=== PATIENT | male | born 1930 | race Caucasian/White ===

== ENCOUNTER 2016-10-28 16:06 | Inpatient (IN) | payer MEDICARE, OTHER ==
--- NOTE | ~2016-10-28 | CN ---
Consultation Report [facility] [address] [place]. [address] NAME: ALFRED MARTE : [birth year] STATUS : ADM IN PAT#: [id number] AGE: 86 ADM/REG DATE : 10/28/16 MR#: [id number] REPORT SERV DATE: 10/29/16 DICTATED BY: DATE: REPORT STATUS : Draft TRANSCRIBED BY: MODL DATE: 10/29/16 CONSULTATION DATE OF CONSULTATION: 10/29/2016 CHIEF COMPLAINT/REASON FOR CONSULT: Congestive heart failure. PRIMARY DIRECTOR CLINICAL INFORMATION SERVICES: Dr. Valdez. HISTORY OF PRESENT ILLNESS: Mr. Marte is a very pleasant 86-year-old gentleman with a known history of abdominal aortic aneurysm, atrial fibrillation, coronary artery disease status post coronary artery bypass grafting, DVT, and chronic systolic heart failure with an ejection fraction of 40%, and moderate mitral regurgitation. He was admitted on 10/29/2016 for weakness and increased shortness of breath. The patient denies any chest pain. He states that he just felt weak and now he feels better with oxygen therapy. In speaking with the patient and his , they state that they eat every meal out. She states that her kitchen is closed. Every morning he goes to [employer] and gets them breakfast. His favorite breakfast is a biscuit and gravy from [employer] which has approximately 1390 mg of sodium in it, and then they go to the [facility] in [place] and eat for the rest of the day. They do not salt their food. He does not necessarily restrict his fluid and generally had anywhere between four glasses and a pitcher of sweet tea with his meal at the [facility]. Sometimes they miss medicines. But states that he is generally compliant. PAST MEDICAL HISTORY: 1. Chronic systolic heart failure, ejection fraction of 40% with moderate mitral regurgitation, 06/20/2016. 2. History of abdominal aortic aneurysm repair in 2009. 3. Atrial fibrillation. 4. Left bundle-branch block. 5. Coronary artery bypass grafting x4 in 2008. 6. Chronic anticoagulation therapy. SOCIAL HISTORY: The patient is . His is present at the bedside, as well as his daughter. He does not smoke. He quit 45 years ago. He does not use alcohol. He does not use extracurricular drugs. FAMILY HISTORY: Noncontributory. REVIEW OF SYSTEMS: All systems reviewed and is negative except for as dictated in the HPI. PHYSICAL EXAMINATION: Consultation Report [facility] [id number] [place]. [address] NAME: ALFRED MARTE : [birth year] STATUS : ADM IN PAT#: [id number] AGE: 86 ADM/REG DATE : 10/28/16 MR#: [id number] REPORT SERV DATE: 10/29/16 DICTATED BY: DATE: REPORT STATUS : Draft TRANSCRIBED BY: MODL DATE: 10/29/16 VITAL SIGNS: Blood pressures range between 138 to 158 over 77 and 90, respirations 18, pulse has ranged between 84 to 89 beats per minute, and oxygen saturations 99% on 3 L nasal cannula. I's 230, O's 1350. GENERAL: Mr. Marte is a cachectic 86-year-old gentleman. He is in no distress. NECK: I could not appreciate jugular venous distention. HEART: Irregular. Rate controlled. There is a 3/6 systolic murmur that is best appreciated at the apex. LUNGS: Clear to auscultation at this time. ABDOMEN: Soft and nontender. EXTREMITIES: Warm and well-perfused. There is trivial edema at the ankles. NEUROLOGIC: The patient is alert and oriented. I could not appreciate focal neurologic deficits. LABORATORY DATA: A CT scan of the chest demonstrated a possible spiculated mass, pulmonary hypertension, bilateral pleural effusions noted. Sodium 4.7, BUN 29, and creatinine 1.46. Hemoglobin 11, hematocrit 37.6, and platelet count is 183. INR is 3. BNP is 4032. EKG demonstrated a left bundle-branch block, cannot exclude atrial flutter. IMPRESSION, REPORT, AND PLAN: 1. Acute on chronic systolic heart failure. 2. Hypoxia and dyspnea, likely secondary to above. 3. Sodium noncompliance. 4. Spiculated masslike infiltrate. 5. Coronary artery disease status post coronary artery bypass grafting. 6. Chronic atrial fibrillation. 7. Mild renal insufficiency. RECOMMENDATIONS: 1. I agree with diuresis as already initiated. 2. Continue carvedilol. 3. We would hold RONALDO inhibitor during diuresis at this time. 4. Consider adding low-dose spironolactone. 5. Heart failure teaching has been provided by both nursing staff and by myself as far as the sodium content in various foods. 6. Fluid restrict to 2 L per day. 7. Additional recommendations pending clinical course. LGC/MODL Tracey Cho M.D. / [id number] Consultation Report [address] [facility] [address] NAME: ALFRED MARTE : [birth year] STATUS : ADM IN PAT#: [id number] AGE: 86 ADM/REG DATE : 10/28/16 MR#: [id number] REPORT SERV DATE: 10/29/16 DICTATED BY: DATE: REPORT STATUS : Draft TRANSCRIBED BY: MODL DATE: 10/29/16 CC: Narayan Holcomb M.D.
--- NOTE | ~2016-10-28 | DS ---
Discharge Summary [facility] [id number] [place]. [address] NAME: ALFRED LUI : [birth year] STATUS : DIS IN PAT#: [id number] AGE: 86 ADM/REG DATE : 10/28/16 MR#: [id number] REPORT SERV DATE: 11/04/16 DICTATED BY: EFREN DUMONT DATE: 11/03/16 REPORT STATUS : Draft TRANSCRIBED BY: MODL DATE: 11/03/16 ADMISSION DATE: 10/28/2016 DISCHARGE DATE: 11/03/2016 ADMITTING DIAGNOSIS: Hypoxic respiratory failure. DISCHARGE DIAGNOSES: 1. Hypoxic respiratory failure secondary to acute on chronic systolic congestive heart failure. 2. Ischemic cardiomyopathy. 3. Coronary artery disease, distant coronary artery bypassing. 4. Right lung mass, uncertain significance to be followed upon. 5. Hypertension. 6. Chronic atrial fibrillation. 7. Chronic kidney disease 3. 8. Hypothyroidism. 9. History of kidney stones with ureteral obstruction. 10.Esophageal reflux, distant history of peptic ulcer disease. 11.History of abdominal aortic aneurysm stenting. 12.History of hospital encephalopathy, all recalled. 13.Chronic Coumadin therapy. DISCHARGE MEDICATIONS: He will take aspirin 81 mg coated daily, carvedilol increased to 25 mg b.i.d., levothyroxine continued at 88 mcg a day, lisinopril instituted at 5 mg b.i.d., magnesium continued at 400 mg daily, Protonix continued 40 mg daily, pravastatin continued 20 mg daily. Spironolactone initiated at 25 mg daily. Demadex increased to 20 mg b.i.d. He would continue previous Coumadin therapy and timolol eye drops. He would stay off potassium. He would follow up in 3 days with a BMP and a protime. ADMISSION SUMMARY: An 86-year-old gentleman with medical problems as defined above presented to the emergency room with several days of weakness and dyspnea found to be hypoxic and chest x-ray initially suggesting the possibility of pneumonia. See the previously dictated admission note. PERTINENT LABORATORY STUDIES: Admission white count 9500, hemoglobin 10.9, hematocrit 37.1, INR was 2.9. Sodium 144, potassium 4.3, BUN 24, creatinine 1.44, nonfasting blood sugar 137, troponin was 0.[address] x3. BNP elevated at 4032 improved to 1529 several days prior to discharge. TSH was normal. Blood gas; 7.49/34/58 on room air. Urinalysis on admission unremarkable. At discharge INR was 2.0, hematocrit 11.2, hemoglobin 35.9, sodium 139, potassium 4.3, BUN 37, and creatinine 1.32. RADIOGRAPHIC STUDIES: Included initial chest x-ray showing right lower lobe airspace disease compatible with pneumonia and bilateral pleural effusions. CT scan of the chest without contrast showed cardiomegaly with findings of congestive heart failure, some thoracic aneurysmal changes, and a spiculated mass infiltrate in the right lower lobe suspicious for malignancy. There was atelectasis bilaterally. Prior to discharge, a chest x-ray repeated Discharge Summary [address] [place]. [address] NAME: ALFRED LUI : [birth year] STATUS : DIS IN PAT#: [id number] AGE: 86 ADM/REG DATE : 10/28/16 MR#: [id number] REPORT SERV DATE: 11/04/16 DICTATED BY: EFREN DUMONT DATE: 11/03/16 REPORT STATUS : Draft TRANSCRIBED BY: MANUEL DATE: 11/03/16 showed cardiomegaly with marked improvement in the lungs, pulmonary congestion with a small right pleural effusion. HOSPITAL COURSE: The patient was admitted with respiratory failure. Initially chest x-ray raised the question of pneumonia but clinically, it was more compatible with congestive heart failure. He was given IV diuretics seen in consultation by Cardiology representing Dr. Valdez. An echocardiogram showed moderate to severe global systolic dysfunction with ejection fraction of 30% to 35% range which had previously been about 40-45% range six months ago. There was moderate mitral regurgitation. Diuretics were pushed. Spironolactone was added. Beta blockers were increased, and lisinopril was added all with judicious observation of his potassium and blood pressure. At the time of discharge, he was tolerating it well, and there was marked improvement in his chest x-ray findings, and he felt much better. He was in atrial fibrillation. Coumadin was therapeutic. He was given dietary education regarding salt restriction. Initial chest x-ray raised the question of a mass in his right lung. It was my clinical suspicion that this was more likely fluid and a CT scan of the chest would be followed up on in several weeks. He was given education on his medications and was discharged in care of his family for outpatient followup as above. XIOMARA/MANUEL Efren Dumont M.D. / [id number] CC: Mir Leonard M.D.
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
[~2016-10-28 16:06] MED LIST: ACET500CAP PO; ALBUTEROL5 INH; ASAB PO; ATEN100 PO; BETIMOL0.25 % OP; BETIMOL0.5 % OPH; C1 PO; C2 PO; CARDCD180 PO; CEFT5 PO; CORDARONE PO; COREG12 PO; COREG25 PO; COUMADIN3 MG PO; DEMA10T PO; DEMA20 PO; DILT-XR180 MG PO; DURICEF PO; FERROUS SULF325 M1 PO; GGEXPUD PO; HALF81 PO; HCTZ12.5 PO; HYDROCHLOROT12.5 MG PO; IRON325 MG PO; KDUR10 PO; KDUR20 PO; KLOR-CON M1010 MEQ PO; KLOR-CON M2020 MEQ PO; KONSYL100 % PO; LEVAQUIN750 MG PO; LEVOTHYROXIN88 MCG PO; LIPITOR20 PO; LISINOPRIL40 MG PO; LOP100 PO; LOVENOX40 SC; MAGOX4 PO; MULTIPLE VIT PO; NEXIUM40 MG PO; NIASPAN500 PO; NXL9 PO; OTC MELATONIN PO; PRAVAC PO; PRAVASTATIN PO; PREV30 PO; PRIN20 PO; PROTONIX PO; PYR200 PO; SYMBICORT 160/41 INH INH; SYN88 PO; TIMOLOL MAL0.5 % OP; TIMOLOL MAL0.5 % OPH; TIMOLOL OPH; TIMOPTIC OCU0.5 % OP; TRAZ50 PO; TYLENOL PM PO; VITC500 PO; [UNRECOGNIZED DRUG - OTHER] PO
[2016-10-28 16:16] LABS: BASOPHILS 0.2 %; BASOPHILS ABSOLUTE 0.02 10/3/uL (0.0-0.16); EOSINOPHILS 1.6 %; EOSINOPHILS ABSOLUTE 0.15 10/3/uL (0.0-0.53); ER CBC TAT 0 Hrs 05 Mins; HEMATOCRIT 37.1 % (40.0-51.0); HEMOGLOBIN 10.9 g/dL (13.6-17.8); IMMATURE GRANULOCYTES 0.4 %; IMMATURE GRANULOCYTES ABSOLUTE 0.04 10/3/uL (0.0-0.11); LYMPHOCYTES 27.7 %; LYMPHOCYTES ABSOLUTE 2.62 10/3/uL (0.67-4.30); MEAN CORPUSCULAR HEMOGLOB 25.5 pg (26.0-34.0); MEAN CORPUSCULAR VOLUME 86.7 fL (80-100); MEAN PLATELET VOLUME 10.5 fL (9.2-13.0); MONOCYTES 10.6 %; NEUTROPHILS 59.5 %; NEUTROPHILS ABSOLUTE 5.63 10/3/uL (2.02-8.40); PLATELET COUNT 210 10/3/uL (150-400); RBC DISTRIBUTION WIDTH 17.2 % (12.0-16.0); RED CELL COUNT 4.28 10/6/uL (4.7-6.1); WHITE BLOOD CELLS 9.5 10/3/uL (4.5-10.5)
[2016-10-28 16:17] LABS: MANUAL DIFF NO %; MEAN CORPUS HGB CONC 29.4 g/dL (32.0-36.0)
[2016-10-28 16:22] LABS: PARTIAL THROMBO TIME 33.4 SEC (22.5-37.2)
[2016-10-28 16:23] LABS: INTERNATIONAL NORMAL RATI 2.9 UNITS (-); PROTIME (NOT ORD) 29.9 SEC (12.0-14.5)
[2016-10-28 16:31] LABS: CALCIUM, SERUM 8.9 MG/DL (8.5-10.4); CHLORIDE, SERUM 107 MMOL/L (96-112); CO2 (CARBON DIOXIDE) 31 MMOL/L (24-34); CREATININE 1.44 MG/DL (0.70-1.30); GFR AFRICAN AMERICAN 50 ML/MIN (>=60); GFR NON AFRICAN AMERICAN 43 ML/MIN (>=60); GLUCOSE, SERUM 137 MG/DL (60-99); POTASSIUM, SERUM 4.3 MMOL/L (3.5-5.3); SODIUM, SERUM 144 MMOL/L (135-148)
[2016-10-28 16:32] LABS: BUN (BLOOD UREA NITROGEN) 24 MG/DL (6-23)
[2016-10-28 16:33] LABS: CHEST PAIN PROFILE TAT 0 Hrs 22 Mins; TROPONIN I 0.07 NG/ML (<0.05)
[2016-10-28 16:50] LABS: BE (BASE EXCESS) 2.1 MEQ/L (0 +/- 2.5); CARBOXYHEMOGLOBIN 1.7 % (0-3); HCO3 (ACTUAL BICARBONATE) 25.1 MEQ/L (23-27); HEMOBLOGIN CONTENT 12.1 G/DL (14-18); INSTRUMENT SERIAL # 8087; METHEMOGLOBIN 0.3 % (0-3); O2 CONTENT 15.1 VOL% (18-24); PCO2 (CO2 TENSION) 34 MMHG (35-45); PO2 (O2 TENSION) 58 MMHG (79-93); SAMPLE Arterial; pH 7.49 (7.37-7.43)
[2016-10-28] MEDS ORDERED: TIMOLOL MAL0.5 % OPH (17:05)
[2016-10-28] MEDS ORDERED: C2 PO (17:09)
[2016-10-28 21:46] LABS: WBC (NOT ORDERED) (RFLEX) 0 (0-5)
[2016-10-28 22:03] LABS: ASCORBIC ACID (UR NOT ORDER) NEG (NEG); BILIRUBIN, URINE NEGATIVE (NEG); KETONE, URINE NEGATIVE (NEG); LEUKOCYTE ESTERASE(NOT OR NEG (NEG)
[2016-10-29 05:36] LABS: PROTIME (NOT ORD) 30.9 SEC (12.0-14.5)
[2016-10-29 05:40] LABS: HEMATOCRIT 37.6 % (40.0-51.0); MEAN CORPUS HGB CONC 29.3 g/dL (32.0-36.0); MEAN CORPUSCULAR HEMOGLOB 25.5 pg (26.0-34.0); MEAN PLATELET VOLUME 10.8 fL (9.2-13.0); PLATELET COUNT 183 10/3/uL (150-400); RBC DISTRIBUTION WIDTH 17.1 % (12.0-16.0); RED CELL COUNT 4.32 10/6/uL (4.7-6.1); WHITE BLOOD CELLS 7.3 10/3/uL (4.5-10.5)
[2016-10-29 05:42] LABS: MANUAL DIFF YES %
[2016-10-29 05:47] LABS: CALCIUM, SERUM 8.9 MG/DL (8.5-10.4); CHLORIDE, SERUM 108 MMOL/L (96-112); CO2 (CARBON DIOXIDE) 29 MMOL/L (24-34); CREATININE 1.46 MG/DL (0.70-1.30); GFR AFRICAN AMERICAN 49 ML/MIN (>=60); GFR NON AFRICAN AMERICAN 42 ML/MIN (>=60); GLUCOSE, SERUM 116 MG/DL (60-99); SGPT(ALT) 27 U/L (5-65); SODIUM, SERUM 146 MMOL/L (135-148); TOTAL PROTEIN 6.6 G/DL (6.0-8.5)
[2016-10-29 06:00] LABS: ALBUMIN 2.9 G/DL (3.5-5.0); ALKALINE PHOSPHATASE 67 U/L (45-117); BUN (BLOOD UREA NITROGEN) 29 MG/DL (6-23); TOTAL BILIRUBIN 0.9 MG/DL (0-1.2); TROPONIN I 0.06 NG/ML (<0.05)
[2016-10-29 06:01] LABS: DIRECT BILIRUBIN 0.2 MG/DL (0.0-0.4); INDIRECT BILIRUBIN(NOT ORDER) 0.7 MG/DL (0.1-0.9); POTASSIUM, SERUM 4.7 MMOL/L (3.5-5.3); SGOT(AST) 33 U/L (5-40)
[2016-10-29 06:41] LABS: ANISOCYTOSIS 1+ (5-10/OIF) (0-5/OIF); BAND NEUTROPHILS 2 %; BASOPHILS 1 %; BASOPHILS ABSOLUTE (CALC) 0.07 10/3/uL (0.0-0.16); EOSINOPHILS 3 %; EOSINOPHILS ABSOLUTE (CALC) 0.22 10/3/uL (0.0-0.53); LYMPHOCYTES 26 %; MONOCYTES 7 %; MONOCYTES ABSOLUTE (CALC) 0.51 10/3/uL (0.21-1.20); PLATELET ESTIMATE ADQ (ADEQUATE); POLYCHROMASIA 1+ (2-5/OIF) (0-1/OIF); SEGMENTED NEUTROPHIL (0) 61 %; TOTAL NUCLEATED CELLS 100
[2016-10-30 06:37] LABS: BASOPHILS 0.3 %; BASOPHILS ABSOLUTE 0.03 10/3/uL (0.0-0.16); EOSINOPHILS 2.3 %; EOSINOPHILS ABSOLUTE 0.25 10/3/uL (0.0-0.53); HEMATOCRIT 41.1 % (40.0-51.0); HEMOGLOBIN 12.3 g/dL (13.6-17.8); IMMATURE GRANULOCYTES 0.3 %; IMMATURE GRANULOCYTES ABSOLUTE 0.03 10/3/uL (0.0-0.11); LYMPHOCYTES 26.5 %; LYMPHOCYTES ABSOLUTE 2.84 10/3/uL (0.67-4.30); MEAN CORPUS HGB CONC 29.9 g/dL (32.0-36.0); MEAN CORPUSCULAR VOLUME 86.9 fL (80-100); MEAN PLATELET VOLUME 10.5 fL (9.2-13.0); MONOCYTES 10.3 %; NEUTROPHILS 60.3 %; NEUTROPHILS ABSOLUTE 6.45 10/3/uL (2.02-8.40); PLATELET COUNT 209 10/3/uL (150-400); RBC DISTRIBUTION WIDTH 17.3 % (12.0-16.0); RED CELL COUNT 4.73 10/6/uL (4.7-6.1)
[2016-10-30 06:38] LABS: INTERNATIONAL NORMAL RATI 2.9 UNITS (-); PROTIME (NOT ORD) 29.8 SEC (12.0-14.5)
[2016-10-30 06:40] LABS: MANUAL DIFF NO %; WHITE BLOOD CELLS 10.7 10/3/uL (4.5-10.5)
[2016-10-30 06:48] LABS: BUN (BLOOD UREA NITROGEN) 31 MG/DL (6-23); CALCIUM, SERUM 9.1 MG/DL (8.5-10.4); CHLORIDE, SERUM 105 MMOL/L (96-112); CO2 (CARBON DIOXIDE) 30 MMOL/L (24-34); GFR AFRICAN AMERICAN 44 ML/MIN (>=60); GFR NON AFRICAN AMERICAN 38 ML/MIN (>=60); GLUCOSE, SERUM 137 MG/DL (60-99); SODIUM, SERUM 144 MMOL/L (135-148)
[2016-10-31 04:39] LABS: INTERNATIONAL NORMAL RATI 2.5 UNITS (-); PROTIME (NOT ORD) 26.8 SEC (12.0-14.5)
[2016-10-31 04:42] LABS: HEMATOCRIT 38.6 % (40.0-51.0); HEMOGLOBIN 11.6 g/dL (13.6-17.8); MEAN CORPUS HGB CONC 30.1 g/dL (32.0-36.0); MEAN CORPUSCULAR HEMOGLOB 25.8 pg (26.0-34.0); MEAN PLATELET VOLUME 10.5 fL (9.2-13.0); PLATELET COUNT 172 10/3/uL (150-400); RED CELL COUNT 4.49 10/6/uL (4.7-6.1); WHITE BLOOD CELLS 9.1 10/3/uL (4.5-10.5)
[2016-10-31 04:54] LABS: CALCIUM, SERUM 8.9 MG/DL (8.5-10.4); CHLORIDE, SERUM 103 MMOL/L (96-112); CO2 (CARBON DIOXIDE) 30 MMOL/L (24-34); CREATININE 1.43 MG/DL (0.70-1.30); GFR AFRICAN AMERICAN 50 ML/MIN (>=60); GFR NON AFRICAN AMERICAN 43 ML/MIN (>=60); POTASSIUM, SERUM 4.4 MMOL/L (3.5-5.3); SODIUM, SERUM 143 MMOL/L (135-148)
[2016-10-31 05:02] LABS: BUN (BLOOD UREA NITROGEN) 35 MG/DL (6-23); GLUCOSE, SERUM 108 MG/DL (60-99)
[2016-10-31 05:06] LABS: MANUAL DIFF YES %
[2016-10-31 05:20] LABS: ANISOCYTOSIS 1+ (5-10/OIF) (0-5/OIF); BAND NEUTROPHILS 1 %; EOSINOPHILS 2 %; EOSINOPHILS ABSOLUTE (CALC) 0.18 10/3/uL (0.0-0.53); HYPOCHROMIA 1+ (3-10/OIF) (0-2/OIF); LYMPHOCYTES 20 %; LYMPHOCYTES ABSOLUTE (CALC) 1.82 10/3/uL (0.67-4.30); MONOCYTES 5 %; MONOCYTES ABSOLUTE (CALC) 0.46 10/3/uL (0.21-1.20); NEUTROPHILS ABSOLUTE (CALC) 6.64 10/3/uL (2.02-8.40); PLATELET ESTIMATE ADQ (ADEQUATE); SEGMENTED NEUTROPHIL (0) 72 %; TOTAL NUCLEATED CELLS 100
[2016-11-01 07:11] LABS: BASOPHILS 0.2 %; BASOPHILS ABSOLUTE 0.01 10/3/uL (0.0-0.16); EOSINOPHILS 4.1 %; EOSINOPHILS ABSOLUTE 0.27 10/3/uL (0.0-0.53); HEMATOCRIT 37.8 % (40.0-51.0); HEMOGLOBIN 11.6 g/dL (13.6-17.8); IMMATURE GRANULOCYTES 0.3 %; IMMATURE GRANULOCYTES ABSOLUTE 0.02 10/3/uL (0.0-0.11); LYMPHOCYTES ABSOLUTE 1.79 10/3/uL (0.67-4.30); MEAN CORPUS HGB CONC 30.7 g/dL (32.0-36.0); MEAN CORPUSCULAR HEMOGLOB 26.2 pg (26.0-34.0); MEAN CORPUSCULAR VOLUME 85.5 fL (80-100); MEAN PLATELET VOLUME 10.8 fL (9.2-13.0); MONOCYTES ABSOLUTE 0.73 10/3/uL (0.21-1.20); NEUTROPHILS 57.4 %; NEUTROPHILS ABSOLUTE 3.82 10/3/uL (2.02-8.40); PLATELET COUNT 172 10/3/uL (150-400); RBC DISTRIBUTION WIDTH 16.5 % (12.0-16.0); RED CELL COUNT 4.42 10/6/uL (4.7-6.1); WHITE BLOOD CELLS 6.6 10/3/uL (4.5-10.5)
[2016-11-01 07:18] LABS: BUN (BLOOD UREA NITROGEN) 32 MG/DL (6-23); CHLORIDE, SERUM 98 MMOL/L (96-112); CO2 (CARBON DIOXIDE) 32 MMOL/L (24-34); CREATININE 1.31 MG/DL (0.70-1.30); GFR AFRICAN AMERICAN 56 ML/MIN (>=60); GFR NON AFRICAN AMERICAN 48 ML/MIN (>=60); GLUCOSE, SERUM 108 MG/DL (60-99); SODIUM, SERUM 142 MMOL/L (135-148)
[2016-11-01 07:23] LABS: MANUAL DIFF NO %
[2016-11-01 07:25] LABS: INTERNATIONAL NORMAL RATI 2.1 UNITS (-); PROTIME (NOT ORD) 23.6 SEC (12.0-14.5)
[2016-11-02 05:32] LABS: BASOPHILS 0.3 %; BASOPHILS ABSOLUTE 0.02 10/3/uL (0.0-0.16); EOSINOPHILS 4.3 %; EOSINOPHILS ABSOLUTE 0.34 10/3/uL (0.0-0.53); HEMATOCRIT 37.3 % (40.0-51.0); HEMOGLOBIN 11.5 g/dL (13.6-17.8); IMMATURE GRANULOCYTES 0.4 %; IMMATURE GRANULOCYTES ABSOLUTE 0.03 10/3/uL (0.0-0.11); LYMPHOCYTES 28.2 %; LYMPHOCYTES ABSOLUTE 2.21 10/3/uL (0.67-4.30); MEAN CORPUS HGB CONC 30.8 g/dL (32.0-36.0); MEAN CORPUSCULAR HEMOGLOB 26.3 pg (26.0-34.0); MEAN CORPUSCULAR VOLUME 85.2 fL (80-100); MEAN PLATELET VOLUME 10.9 fL (9.2-13.0); MONOCYTES 12.5 %; MONOCYTES ABSOLUTE 0.98 10/3/uL (0.21-1.20); NEUTROPHILS 54.3 %; NEUTROPHILS ABSOLUTE 4.26 10/3/uL (2.02-8.40); PLATELET COUNT 191 10/3/uL (150-400); RBC DISTRIBUTION WIDTH 16.7 % (12.0-16.0); RED CELL COUNT 4.38 10/6/uL (4.7-6.1); WHITE BLOOD CELLS 7.8 10/3/uL (4.5-10.5)
[2016-11-02 05:37] LABS: MANUAL DIFF NO %
[2016-11-02 05:38] LABS: BUN (BLOOD UREA NITROGEN) 31 MG/DL (6-23); CALCIUM, SERUM 8.9 MG/DL (8.5-10.4); CHLORIDE, SERUM 97 MMOL/L (96-112); CO2 (CARBON DIOXIDE) 36 MMOL/L (24-34); GFR AFRICAN AMERICAN 56 ML/MIN (>=60); GFR NON AFRICAN AMERICAN 49 ML/MIN (>=60); GLUCOSE, SERUM 111 MG/DL (60-99); POTASSIUM, SERUM 4.2 MMOL/L (3.5-5.3); SODIUM, SERUM 141 MMOL/L (135-148)
[2016-11-02 05:39] LABS: PROTIME (NOT ORD) 22.3 SEC (12.0-14.5)
[2016-11-03 05:25] LABS: PROTIME (NOT ORD) 22.6 SEC (12.0-14.5)
[2016-11-03 05:29] LABS: BASOPHILS 0.1 %; BASOPHILS ABSOLUTE 0.01 10/3/uL (0.0-0.16); CALCIUM, SERUM 8.7 MG/DL (8.5-10.4); CHLORIDE, SERUM 97 MMOL/L (96-112); CREATININE 1.32 MG/DL (0.70-1.30); EOSINOPHILS 3.8 %; EOSINOPHILS ABSOLUTE 0.35 10/3/uL (0.0-0.53); GFR AFRICAN AMERICAN 55 ML/MIN (>=60); GFR NON AFRICAN AMERICAN 48 ML/MIN (>=60); GLUCOSE, SERUM 116 MG/DL (60-99); HEMATOCRIT 35.9 % (40.0-51.0); HEMOGLOBIN 11.2 g/dL (13.6-17.8); IMMATURE GRANULOCYTES 0.3 %; IMMATURE GRANULOCYTES ABSOLUTE 0.03 10/3/uL (0.0-0.11); LYMPHOCYTES 20.1 %; LYMPHOCYTES ABSOLUTE 1.87 10/3/uL (0.67-4.30); MEAN CORPUS HGB CONC 31.2 g/dL (32.0-36.0); MEAN CORPUSCULAR HEMOGLOB 26.5 pg (26.0-34.0); MEAN CORPUSCULAR VOLUME 84.9 fL (80-100); MEAN PLATELET VOLUME 10.7 fL (9.2-13.0); MONOCYTES 10.9 %; MONOCYTES ABSOLUTE 1.01 10/3/uL (0.21-1.20); NEUTROPHILS 64.8 %; NEUTROPHILS ABSOLUTE 6.03 10/3/uL (2.02-8.40); PLATELET COUNT 188 10/3/uL (150-400); POTASSIUM, SERUM 4.3 MMOL/L (3.5-5.3); RBC DISTRIBUTION WIDTH 16.6 % (12.0-16.0); RED CELL COUNT 4.23 10/6/uL (4.7-6.1); SODIUM, SERUM 139 MMOL/L (135-148); WHITE BLOOD CELLS 9.3 10/3/uL (4.5-10.5)
[2016-11-03 05:30] LABS: MANUAL DIFF NO %
[2016-11-03 05:32] LABS: BUN (BLOOD UREA NITROGEN) 37 MG/DL (6-23); CO2 (CARBON DIOXIDE) 31 MMOL/L (24-34)
[2016-11-03 07:23] LABS: BAND NEUTROPHILS 13 %; IMMATURE GRANS ABSOLUTE (CALC) 0.28 10/3/uL (0.0-0.11); LYMPHOCYTES 7 %; LYMPHOCYTES ABSOLUTE (CALC) 0.65 10/3/uL (0.67-4.30); METAMYELOCYTES 2 %; MONOCYTES 9 %; MONOCYTES ABSOLUTE (CALC) 0.84 10/3/uL (0.21-1.20); MYELOCYTES 1 %; NEUTROPHILS ABSOLUTE (CALC) 7.53 10/3/uL (2.02-8.40); SEGMENTED NEUTROPHIL (0) 68 %; TOTAL NUCLEATED CELLS 100
[2016-11-03 07:24] LABS: PLATELET ESTIMATE ADQ (ADEQUATE)
[2016-11-03 07:25] LABS: GIANT PLATELET MOD
[2016-11-03] MEDS ORDERED: HALF81 PO (13:38)
[2016-11-03] MEDS ORDERED: COREG25 PO (13:40)
[2016-11-03] MEDS ORDERED: PRIN5 PO (13:42)
[2016-11-03] MEDS ORDERED: SPIRO25 PO (13:44)
[2016-11-03] MEDS ORDERED: TIMOLOL MAL0.25 % OPH (13:45)
[2016-11-03] MEDS ORDERED: DEMA20 PO (13:46)
== END 2016-11-03 14:56 | disposition home or self-care (01) | DRG 291 ==
LOC: ER 16:06 → 6NO 18:05
PROVIDERS: Hospitalist; Internal Medicine
DX: I13.0 Hypertensive heart and chronic kidney disease with heart failure and stage 1 through stage 4 chronic kidney disease, or unspecified chronic kidney disease (principal); J96.91 Respiratory failure, unspecified with hypoxia; I50.43 Acute on chronic combined systolic (congestive) and diastolic (congestive) heart failure; I25.5 Ischemic cardiomyopathy; I48.2 Chronic atrial fibrillation; I25.10 Atherosclerotic heart disease of native coronary artery without angina pectoris; N18.3 Chronic kidney disease, stage 3 (moderate); R91.8 Other nonspecific abnormal finding of lung field; K21.9 Gastro-esophageal reflux disease without esophagitis; I44.7 Left bundle-branch block, unspecified; I71.4 Abdominal aortic aneurysm, without rupture; I48.0 Paroxysmal atrial fibrillation; Z95.1 Presence of aortocoronary bypass graft; Z87.442 Personal history of urinary calculi; Z79.01 Long term (current) use of anticoagulants; Z86.718 Personal history of other venous thrombosis and embolism; Z87.11 Personal history of peptic ulcer disease
CPT/HCPCS: 36600; 71010; 71020; 71250; 80048; 80076; 81001; 82805; 83735; 83880; 84443; 84484; 85025; 85610; 85730; 93005; 93306; 99285; A9270-GY; J0456

== ENCOUNTER 2016-12-31 10:50 | Day surgery (SDC) | payer MEDICARE, OTHER ==
--- NOTE | ~2016-12-31 | CN ---
Consultation Report [facility] [address] [place]. [address] NAME: LAFRED MARTE : [birth year] STATUS : [facility]#: [id number] AGE: 86 ADM/REG DATE : 12/31/16 MR#: [id number] REPORT SERV DATE: 01/20/17 DICTATED BY: JOAN KHAN DATE: 01/20/17 REPORT STATUS : Draft TRANSCRIBED BY: MODJanie DATE: 01/20/17 CONSULTATION DATE OF CONSULTATION: 12/31/[address] Narayan Holcomb: Thank you for requesting my opinion regarding evaluation and management of Mr. Alfred Marte's 4.4 x 3 cm partially cavitated right lower lobe lung lesion. The patient was admitted on 10/28/2016 for generalized weakness over several days including dyspnea, confusion, and fatigue. The patient was found to have hypoxic respiratory failure likely multifactorial due to pneumonia and congestive heart failure. The patient had a CT scan of the chest on 10/28/2016 that demonstrated diffuse pulmonary edema and moderate severity CHF, mild fusiform aneurysmal change in the ascending thoracic aorta, a spiculated mass-like infiltrate in the right lower lobe suspicious for malignancy. The patient was then recommended to undergo a repeat CT scan of the chest, which confirmed a persistent abnormality that had grown from 3 x 2.5 cm that was anteriorly displaced by pleural fluid, now 4 x 3 cm. Subsequent PET-CT scan on 12/26/2016 demonstrated irregular 4 cm FDG avid, SUV max of 5.2 partially cavitary superior segment right lower lobe lung mass most concerning for primary bronchogenic carcinoma. The correlation with tissue sampling was recommended. If this was malignant, the patient's PET-CT findings are indicative of stage IB lung cancer. The patient also was noted to have a partial right colectomy and ileocolonic anastomosis and extensive diverticulosis coli of the remaining colon without diverticulitis and an aorta bi-iliac graft with mild wilton abdominal aortic aneurysm of 3.6. The patient states that he does not have any current symptoms of acute respiratory changes, but he does have chronic shortness of breath well localized to the chest, nonradiating, with no significant alleviating or exacerbating factors. REVIEW OF SYSTEMS: A detailed 14-point review of systems was completed. Pertinent positives and negatives are listed above. PAST MEDICAL HISTORY: 1. Hypertension. 2. Chronic atrial fibrillation. 3. Coronary artery disease, status post bypass grafting. 4. Chronic Coumadin for recurrent DVTs. 5. Atrial fibrillation. 6. Dyslipidemia. 7. Hypothyroidism. 8. Esophageal reflux disease. 9. Abdominal aortic aneurysm that has been stented. Consultation Report [facility] [address] [place]. [address] NAME: ALFRED MARTE : [birth year] STATUS : [facility]#: [id number] AGE: 86 ADM/REG DATE : 12/31/16 MR#: [id number] REPORT SERV DATE: 01/20/17 DICTATED BY: JOAN KHAN DATE: 01/20/17 REPORT STATUS : Draft TRANSCRIBED BY: MANUEL DATE: 01/20/17 10.Arthritis of the knees. PAST SURGICAL HISTORY: 1. Hemicolectomy. 2. Right hip replacement. 3. Bypass graft and aortic stent. 4. Cholecystectomy. 5. Hria fundoplication. 6. Bilateral cataracts. ALLERGIES: NO KNOWN DRUG ALLERGIES. HOME MEDICATIONS: Reviewed and located in the paper chart. SOCIAL HISTORY: The patient is . He does not smoke currently. He quit 45 years ago. It is unclear the total amount of tobacco abuse that occurred at that time, but it sounded marginal. He does not have any history of alcohol or illicit drug abuse. FAMILY HISTORY: Noncontributory. PHYSICAL EXAMINATION: VITAL SIGNS: Reviewed and located in the paper chart. GENERAL: Cachectic-appearing 86-year-old gentleman, in no obvious distress. He denies any chest pain or palpitations. HEENT: Normocephalic and atraumatic. Pupils are equal, round, and reactive to light and accommodation. Posterior oropharynx is clear. NECK: No JVD. No LAD. Trachea midline. CARDIOVASCULAR: Regular rate and rhythm. The patient has 3/6 systolic murmur best appreciated at the apex. LUNGS: Clear to auscultation bilaterally. ABDOMEN: Nontender, nondistended. EXTREMITIES: There are no clubbing, cyanosis, or edema. SKIN: No new rashes, lesions, or ulcers. PSYCHIATRIC: Alert and oriented x3. Appropriate mood and affect. Appropriate insight and judgment. IMAGING PROCEDURE: PET-CT scan performed on 12/26/2016 was personally reviewed by me and I agree with the following interpretation. Irregularly shaped 4 cm FDG-avid lung mass, partially cavitary, superior segment right lower lobe lung mass most concerning for primary bronchogenic carcinoma, status post partial right colectomy with ileocolonic anastomosis, extensive diverticulosis coli of the remaining colon without diverticulitis, and aorta bi- iliac stent graft with mild wilton abdominal aortic aneurysm of 3.6 cm. ASSESSMENT AND PLAN: Mr. Alfred Marte is an extremely pleasant 86-year-old gentleman who has a remote history of smoking, who presents with an enlarging right lower lobe cavitary lung Consultation Report [facility] [address] [facility] [place]. [address] NAME: ALFRED MARTE : [birth year] STATUS : [facility]#: [id number] AGE: 86 ADM/REG DATE : 12/31/16 MR#: [id number] REPORT SERV DATE: 01/20/17 DICTATED BY: JOAN KHAN DATE: 01/20/17 REPORT STATUS : Draft TRANSCRIBED BY: MANUEL DATE: 01/20/17 lesion. In October, patient had pneumonia-like symptoms as well as heart failure with subsequent followup imaging demonstrating resolution of pleural effusions, but enlargement in the right lower lobe lung lesion from 3 x 2.5 cm to 4 x 3 cm. Given his history of tobacco abuse, advanced age, the clinical and radiographic presentation could represent either a lung abscess or primary bronchogenic carcinoma. At this point, Mr. Marte would like to proceed forward with a diagnostic intervention given the interval enlargement. We discussed in detail potential options including CT-guided needle biopsy, EBUS, and navigation bronchoscopy and thoracic surgical intervention. Given his advanced age and comorbidities, he is a suboptimal candidate for thoracic surgical intervention. With regard to his CT-guided needle biopsy, this would be an excellent test, but would not allow us to be able to stage his mediastinum in the event that he has underlying malignant disease. Given that if he does fountain pen turner to have malignant disease, EBUS and navigation bronchoscopy would allow us to have mediastinal staging information as well as a potential for diagnostic intervention. After careful discussion of these options, patient agreed to proceed forward with EBUS and navigation bronchoscopy. The patient is aware that the procedure is associated with potential life-threatening risks, lung collapse, respiratory failure, and even . RECOMMENDATIONS: A summary of my recommendations are as follows: 1. Proceed with EBUS and navigation bronchoscopy. 2. If the patient's biopsy is indeterminate or demonstrates atypical cells without positive cultures, I would recommend proceeding with a CT-guided needle biopsy to definitively rule out malignant disease. If the patient is found to have malignant disease, I will refer him to Radiation Oncology. 3. Further recommendations will be pending pathology and culture data. Thank you for allowing me to participate in Mr. Marte's care. MILES/MANUEL Joan Khan M.D. / [id number] CC: Mir Givens M.D.
--- NOTE | ~2016-12-31 | EGD ---
EGD REPORT [facility] [address] [place]. [id number] NAME: ALFRED MARTE : [birth year] STATUS : REG [facility]#: [id number] AGE: 86 ADM/REG DATE : 12/31/16 MR#: [id number] REPORT SERV DATE: 12/31/16 DICTATED BY: RIMMA KHAN DATE: 12/31/16 REPORT STATUS : Draft [facility] DATE: 12/31/16 Pulmonology Patient Name: Alfred Marte Procedure Date: 12/31/2016 3:24 PM Date of : 1930 Attending MD: HEBERT KHAN MD Procedure Date No Time: 12/31/2016 Procedure: EBUS/MINAL BRONCHOSCOPY Indications: Left lower lobe mass Providers: HEBERT KHAN MD Referring MD: EFREN DUMONT Medicines: Lidocaine 2% 20 mL Complications: No immediate complications Procedure: Pre-Anesthesia Assessment: - ASA Grade Assessment: III - A patient with severe systemic disease. - A History and Physical has been performed. Patient meds and allergies have been reviewed. The risks and benefits of the procedure and the sedation options and risks were discussed with the patient. All questions were answered and informed consent was obtained. Patient identification and proposed procedure were verified prior to the procedure by the physician and the nurse in the pre-procedure area in the procedure room. Mental Status Examination: alert and oriented. Airway Examination: normal oropharyngeal airway. Respiratory Examination: clear to auscultation and poor air movement. CV Examination: normal and RRR, no murmurs, no S3 or S4. ASA Grade Assessment: III - A patient with severe systemic disease. After reviewing the risks and benefits, the patient was deemed in satisfactory condition to undergo the procedure. The anesthesia plan was to use general anesthesia. Immediately prior to administration of medications, the patient was re-assessed for adequacy to receive sedatives. The heart rate, respiratory rate, oxygen saturations, blood pressure, adequacy of pulmonary ventilation, and response to care were monitored throughout the procedure. The physical status of the patient was re-assessed after the procedure. After obtaining informed consent, the Bronchoscope was introduced through the mouth, via the endotracheal tube (the patient was intubated for the procedure) and advanced to the tracheobronchial tree. The BF [id number] was introduced through the ETT. The procedure was accomplished without difficulty. The patient EGD REPORT [address] [address] NAME: ALFRED MARTE : [birth year] [place] [facility] [place] [id number] AGE: 86 ADM/REG DATE : 12/31/16 MR#: [id number] REPORT SERV DATE: 12/31/16 DICTATED BY: RIMMA KHAN DATE: 12/31/16 REPORT STATUS : Draft TRANSCRIBED BY: [employer] DATE: 12/31/16 tolerated the procedure well. Findings: The endotracheal tube is in good position. The visualized portion of the trachea is of normal caliber. The poli is sharp. The tracheobronchial tree was examined to at least the first subsegmental level. Bronchial mucosa and anatomy are normal; there are no endobronchial lesions, and no secretions. EBUS TBNA of lymph node level 11L x 4 passes for cytology EBUS TBNA of lymph node level 7 x 4 passes for cytology EBUS TBNA of lymph node level 4R x 4 passes for cytology EBUS TBNA of lymph node level 11R x 4 passes for cytology Using SuperDimension Edge catheter 180, peripheral probe EBUS 17s, and fluoroscopy, I performed the following biopsies: RLL lung mass transbronchial needle aspirates x 7 passes for cytology RLL lung mass transbronchial brush biopsy x 2 pass for cytology and cultures RLL lung mass transbronchial forcep biopsies x 8 passes for histopathology Bronchoalveolar lavage was performed in the right lower lobe of the lung and sent for cell count, cytology, bacterial culture, viral smears \T\ culture, and fungal and AFB analysis. 180 mL of fluid were instilled. 30 mL were returned. The return was blood-tinged and cellular. Impression: Rapid On-Site Evaluation (TAWANDA): Preliminary cytology is suggestive of a benign (final results are pending). Recommendation: - Await test results. - Chest X-ray. - Complete pulmonary function tests. - Follow up in clinic. Attending Participation: I personally performed the entire procedure. HEBERT KHAN MD 12/31/2016 5:39 PM This report has been signed electronically. Number of Addenda: 0 Note Initiated On: 12/31/2016 3:24 PM [address] [place] [id number]
[~2016-12-31 10:50] MED LIST changes: +PRIN5 PO; +SPIRO25 PO; +TIMOLOL MAL0.25 % OPH
[2016-12-31 11:15] LABS: BASOPHILS 0.3 %; BASOPHILS ABSOLUTE 0.03 10/3/uL (0.0-0.16); EOSINOPHILS 2.8 %; EOSINOPHILS ABSOLUTE 0.28 10/3/uL (0.0-0.53); HEMATOCRIT 39.2 % (40.0-51.0); HEMOGLOBIN 11.9 g/dL (13.6-17.8); IMMATURE GRANULOCYTES 0.4 %; IMMATURE GRANULOCYTES ABSOLUTE 0.04 10/3/uL (0.0-0.11); LYMPHOCYTES 23.6 %; LYMPHOCYTES ABSOLUTE 2.39 10/3/uL (0.67-4.30); MEAN CORPUS HGB CONC 30.4 g/dL (32.0-36.0); MEAN CORPUSCULAR HEMOGLOB 26.4 pg (26.0-34.0); MEAN CORPUSCULAR VOLUME 87.1 fL (80-100); MEAN PLATELET VOLUME 10.1 fL (9.2-13.0); MONOCYTES 11.4 %; MONOCYTES ABSOLUTE 1.15 10/3/uL (0.21-1.20); NEUTROPHILS 61.5 %; NEUTROPHILS ABSOLUTE 6.22 10/3/uL (2.02-8.40); PLATELET COUNT 191 10/3/uL (150-400); RBC DISTRIBUTION WIDTH 17.8 % (12.0-16.0); WHITE BLOOD CELLS 10.1 10/3/uL (4.5-10.5)
[2016-12-31 11:16] LABS: MANUAL DIFF NO %
[2016-12-31 11:23] LABS: INTERNATIONAL NORMAL RATI 1.3 UNITS (-); PARTIAL THROMBO TIME 28.4 SEC (22.5-37.2)
[2016-12-31 11:24] LABS: PROTIME (NOT ORD) 15.6 SEC (12.0-14.5)
[2016-12-31 11:27] LABS: CALCIUM, SERUM 9.5 MG/DL (8.5-10.4); CHLORIDE, SERUM 109 MMOL/L (96-112); CREATININE 1.23 MG/DL (0.70-1.30); GFR AFRICAN AMERICAN 60 ML/MIN (>=60); GFR NON AFRICAN AMERICAN 52 ML/MIN (>=60); POTASSIUM, SERUM 4.8 MMOL/L (3.5-5.3)
[2016-12-31 11:28] LABS: BUN (BLOOD UREA NITROGEN) 26 MG/DL (6-23); CO2 (CARBON DIOXIDE) 36 MMOL/L (24-34); GLUCOSE, SERUM 139 MG/DL (60-99); SODIUM, SERUM 148 MMOL/L (135-148)
[2016-12-31 21:05] LABS: BD FL LYMPH (NOT ORD) 11 %; BD FL SOURCE (NOT ORD) BAL; BF BASO (NOT OF) 0 %; BF LARGE MONONUCLEAR 33 %; BODY FLUID EOS (NOT ORD) 0 %; BODY FLUID SEG (NOT ORD) 56 %
[2016-12-31 21:06] LABS: BF TOTAL CELL CT (NOT ORD 237 /MM3; BODY FLUID RBC (NOT ORD) 71000 /MM3
== END 2016-12-31 22:49 | disposition home or self-care (01) ==
LOC: DMU 10:50
PROVIDERS: Anesthesiology; Internal Medicine
PROC: 0B9F8ZX Drainage of Right Lower Lung Lobe, Via Natural or Artificial Opening Endoscopic, Diagnostic (ICD-10-PCS; principal; 2016-12-31 13:00)
PROC: 8E0WXBF Computer Assisted Procedure of Trunk Region, With Fluoroscopy (ICD-10-PCS; 2016-12-31 13:00)
PROC: 07B74ZX Excision of Thorax Lymphatic, Percutaneous Endoscopic Approach, Diagnostic (ICD-10-PCS; 2016-12-31 13:00)
PROC: 0BBF8ZX Excision of Right Lower Lung Lobe, Via Natural or Artificial Opening Endoscopic, Diagnostic (ICD-10-PCS; 2016-12-31 13:00)
DX: R91.8 Other nonspecific abnormal finding of lung field (principal); I25.10 Atherosclerotic heart disease of native coronary artery without angina pectoris; I48.91 Unspecified atrial fibrillation; I25.5 Ischemic cardiomyopathy; Z86.718 Personal history of other venous thrombosis and embolism; Z88.5 Allergy status to narcotic agent; Z79.82 Long term (current) use of aspirin; Z79.01 Long term (current) use of anticoagulants; Z79.899 Other long term (current) drug therapy; Z90.49 Acquired absence of other specified parts of digestive tract; Z98.41 Cataract extraction status, right eye; Z98.42 Cataract extraction status, left eye; Z98.890 Other specified postprocedural states; Z87.442 Personal history of urinary calculi
CPT/HCPCS: 71010; 80048; 85025; 85610; 85730; 87015; 87070; 87101; 87102; 87116; 87205; 88112; 88172; 88173; 88177; 88305; 88333; 89051; 93005; A9270-GY; C1725; C1769; J2250; J2370; J2405; J2710; J3010

== ENCOUNTER 2017-01-07 14:43 | Emergency (ER) | payer MEDICARE, OTHER ==
[2017-01-07 15:11] LABS: BASOPHILS 0.3 %; BASOPHILS ABSOLUTE 0.02 10/3/uL (0.0-0.16); EOSINOPHILS ABSOLUTE 0.24 10/3/uL (0.0-0.53); HEMOGLOBIN 13.1 g/dL (13.6-17.8); IMMATURE GRANULOCYTES 0.6 %; IMMATURE GRANULOCYTES ABSOLUTE 0.05 10/3/uL (0.0-0.11); LYMPHOCYTES 14.1 %; LYMPHOCYTES ABSOLUTE 1.11 10/3/uL (0.67-4.30); MEAN CORPUSCULAR HEMOGLOB 27.2 pg (26.0-34.0); MEAN CORPUSCULAR VOLUME 85.1 fL (80-100); MEAN PLATELET VOLUME 10.4 fL (9.2-13.0); MONOCYTES 11.9 %; MONOCYTES ABSOLUTE 0.94 10/3/uL (0.21-1.20); NEUTROPHILS 70.1 %; NEUTROPHILS ABSOLUTE 5.52 10/3/uL (2.02-8.40); PLATELET COUNT 200 10/3/uL (150-400); RBC DISTRIBUTION WIDTH 17.7 % (12.0-16.0); RED CELL COUNT 4.82 10/6/uL (4.7-6.1); WHITE BLOOD CELLS 7.9 10/3/uL (4.5-10.5)
[2017-01-07 15:12] LABS: ER CBC TAT 0 Hrs 11 Mins; MANUAL DIFF NO %
[2017-01-07 15:27] LABS: A/G RATIO 0.8 (0.7-1.9); ALBUMIN 3.5 G/DL (3.5-5.0); ALKALINE PHOSPHATASE 75 U/L (45-117); BUN (BLOOD UREA NITROGEN) 38 MG/DL (6-23); CALCIUM, SERUM 9.2 MG/DL (8.5-10.4); CHLORIDE, SERUM 107 MMOL/L (96-112); CO2 (CARBON DIOXIDE) 27 MMOL/L (24-34); GFR AFRICAN AMERICAN 26 ML/MIN (>=60); GFR NON AFRICAN AMERICAN 22 ML/MIN (>=60); GLOBULIN 4.3 G/DL (2.5-4.1); GLUCOSE, SERUM 121 MG/DL (60-99); POTASSIUM, SERUM 4.6 MMOL/L (3.5-5.3); SGOT(AST) 24 U/L (5-40); SGPT(ALT) 26 U/L (5-65); SODIUM, SERUM 141 MMOL/L (135-148); TOTAL BILIRUBIN 0.8 MG/DL (0-1.2); TOTAL PROTEIN 7.8 G/DL (6.0-8.5)
== END 2017-01-07 17:54 | disposition home or self-care (01) ==
LOC: ER 14:43
PROVIDERS: Emergency Medicine
DX: A08.4 Viral intestinal infection, unspecified (principal); E86.0 Dehydration; I50.9 Heart failure, unspecified; I48.91 Unspecified atrial fibrillation; N18.9 Chronic kidney disease, unspecified; K21.9 Gastro-esophageal reflux disease without esophagitis; Z87.442 Personal history of urinary calculi; Z87.891 Personal history of nicotine dependence; Z88.5 Allergy status to narcotic agent; Z79.01 Long term (current) use of anticoagulants; Z79.899 Other long term (current) drug therapy
CPT/HCPCS: 80053; 81001; 83690; 83880; 85025; 93005; 96374; 99284; J2405